=== PATIENT | male | born 1940 | race Caucasian/White ===

== ENCOUNTER 2020-07-08 13:26 | Outpatient (CLI) | payer MEDICARE, OTHER ==
[~2020-07-08] VITALS: Ht 177.8 cm; Wt 63.6 kg
[2020-07-08 13:20] VITALS: BP 140/73
[2020-07-08] MEDS ORDERED: diphenhydrAMINE 50 MG/ML INJ (BENADRYL) IV PRN (13:30)
[2020-07-08] MEDS ORDERED: EPINEPHrine INJECTION 1 MG/ML AMP IM PRN (13:30)
[2020-07-08] MEDS ORDERED: BAMLANIVIMAB (NON FORM) 700 MG in NS (IVPB) 100 ML IV ONE (13:30)
[2020-07-08 14:05] VITALS: BP 137/70
[2020-07-08 14:52] VITALS: BP 132/73
== END 2020-07-08 14:56 | disposition home or self-care (01) ==
LOC: INFUSION 13:26
PROVIDERS: ATTEND Family Medicine
DX: Z23 Encounter for immunization (principal); U07.1 COVID-19